=== PATIENT | male | born 1995 | race Caucasian/White ===

== ENCOUNTER 2017-10-04 02:23 | Emergency (ER) | payer BC ==
[2017-10-04] MEDS: DIPHTH,PERTUSS(ACELL),TET TOX 0.5 ML DISP.SYRIN. VAX IM ×2 (02:50)
[2017-10-04] MEDS: LIDOCAINE 2%/EPI 1:100,000 20 ML VIAL. IJ ×2 (03:00)
== END 2017-10-04 03:33 | disposition home or self-care (01) ==
LOC: ER 02:23
DX: S01.112A Laceration without foreign body of left eyelid and periocular area, initial encounter (principal); F12.10 Cannabis abuse, uncomplicated; W22.01XA Walked into wall, initial encounter; Y93.89 Activity, other specified; Y92.89 Other specified places as the place of occurrence of the external cause; Y99.8 Other external cause status
CPT/HCPCS: 12013; 90471; 90715; 99283-25; J3490

== ENCOUNTER 2017-11-16 17:25 | Emergency (ER) | payer BC ==
[2017-11-16] MEDS: IPRATRPIUM/ALBUTEROL 0.5/2.5MG 3 ML NEBU. NEB (18:03)
[2017-11-16] MEDS: predniSONE 20 MG TABLET PO (18:06)
== END 2017-11-16 19:10 | disposition home or self-care (01) ==
LOC: ER 17:25
DX: J20.9 Acute bronchitis, unspecified (principal); J45.909 Unspecified asthma, uncomplicated; F12.10 Cannabis abuse, uncomplicated
CPT/HCPCS: 94640; 99283-25; J7512; J7620

== ENCOUNTER 2018-03-23 15:00 | Emergency (ER) | payer BC ==
[2018-03-23] MEDS: predniSONE 20 MG TABLET PO (15:58)
== END 2018-03-23 16:01 | disposition home or self-care (01) ==
LOC: ER 15:00
DX: T63.481A Toxic effect of venom of other arthropod, accidental (unintentional), initial encounter (principal); L27.0 Generalized skin eruption due to drugs and medicaments taken internally; J45.909 Unspecified asthma, uncomplicated; Y92.89 Other specified places as the place of occurrence of the external cause
CPT/HCPCS: 99283; J7512

== ENCOUNTER 2020-06-13 10:06 | Emergency (ER) | payer BC ==
[~2020-06-13] VITALS: Ht 170.2 cm; Wt 94.3 kg
[~2020-06-13 10:06] MED LIST: ALBU2.5V8 INH; AMOX1TAB61 PO; AZIT250T6 PO; IBUP-1060 PO; PRED20TA PO
[2020-06-13 10:29] VITALS: BP 116/71
[2020-06-13] MEDS ORDERED: HYDR15CR20 TP (11:55)
--- NOTE | 2020-06-13 11:55 | PHYS DOC ---
Past Medical History Past Medical History: No Pertinent History Past Surgical History: No Surgical History Smoking Status: Never Smoker Alcohol Use: None Drug Use: Marijuana General Adult EDM: Chief Complaint: PENIS PROBLEM HPI: HPI: Patient is a 25 year old male who presents to the emergency department with concerns of a rash on his penis that itches since yesterday. Patient denies any penile discharge, swelling, testicular pain, testicular swelling, dysuria, hematuria, pelvic pain, low back pain, or fever. He reports that he had sexual intercourse with a new partner on the evening of 06/09/20. He reports that a brand of nonlatex condom that he had never tried was used at that time. He currently denies any pain. Review of Systems: Review of Systems: Constitutional: Denies fever or chills. [] GI: Denies abdominal pain, nausea, vomiting[] : Denies dysuria; see HPI. [] Musculoskeletal: Denies back pain Integument: See history of present illness Lymphatic: Denies swollen glands. [] Psychiatric: Denies depression or anxiety. [] Complete ROS is negative unless otherwise stated in the HPI. Heart Score: Risk Factors: Risk Factors: DM, Current or recent (<one month) smoker, HTN, HLP, family history of CAD, obesity. Risk Scores: Score 0 - 3: 2.5% MACE over next 6 weeks - Discharge Home Score 4 - 6: 20.3% MACE over next 6 weeks - Admit for Clinical Observation Score 7 - 10: 72.7% MACE over next 6 weeks - Early Invasive Strategies Allergies: Allergies: Allergies Coded Allergies Type Severity Reaction Last Updated Verified No Known Drug Allergies 07/15/17 No Physical Exam: PE: Constitutional: Well developed, well nourished, no acute distress, non-toxic appearance. [] HENT: Normocephalic, atraumatic, bilateral external ears normal, nose normal. [] Eyes: PERRLA, EOMI, conjunctiva normal, no discharge. [] Neck: Normal range of motion, no stridor. [] Cardiovascular:Heart rate regular rhythm Lungs & Thorax: Respirations even and unlabored, no retractions, no respiratory distress Male genitourinary: Glans appears normal, no penile discharge, testicles are nontender; Skin: Warm, dry; patchy fine maculopapular erythemic rash noted to the shaft of penis concerning for contact dermatitis, no discharge, no vesicles Extremities: No cyanosis, ROM intact, no edema. [] Neurologic: Alert and oriented X 3, no focal deficits noted. [] Psychologic: Affect normal, judgement normal, mood normal. [] Current Patient Data: Vital Signs: Vital Signs Date Time Temp Pulse Resp B/P (MAP) Pulse Ox O2 Delivery O2 Flow Rate FiO2 06/13/20 10:29 98.2 76 14 116/71 (86) 97 Room Air 98.2 EKG: EKG: [] Radiology/Procedures: Radiology/Procedures: [] Course & Med Decision Making: Course & Med Decision Making Pertinent Labs and Imaging studies reviewed. (See chart for details) [] Dragon Disclaimer: VeriWave Disclaimer: This electronic medical record was generated, in whole or in part, using a voice recognition dictation system. Departure Departure Impression: Primary Impression: Rash of penis Additional Impression: Contact dermatitis Qualified Codes: L23.9 - Allergic contact dermatitis, unspecified cause Disposition: HOME, SELF-CARE Condition: STABLE Referrals: NO PCP (PCP) Patient Instructions: Contact Dermatitis, [id number] Additional Instructions: Fill the prescription and use it as directed. Recommend that you take Benadryl 25 mg every 6 hours as needed for itching. Follow-up with your primary care doctor or 1 of the doctors below if symptoms persist. He might also want to go to the local health department for STI testing if symptoms persist. Return to the ER if fever develops or symptoms worsen. [facility] [address] [place] [address] [facility] [address] [place] [address] [facility] [address] [facility] [place] [address] [facility] [address] [place] [address] [facility] [address] [place] [address] [facility] [address] [place] [address] [facility] [address] [place] [address] [facility] [address] [place] [address] [facility] [address] [place] [address] [facility] [address] [place] [address] Scripts Hydrocortisone Valerate (HYDROCORTISONE VALERATE) 15 Gm Cream..g. 1 JEANIE TP TID PRN for ITCHING for 7 Days, #30 GM 0 Refills 1% hydrocortisone cream Prov: ZACH PARRA TIRE MAKER 06/13/20 ZACH PARRA TIRE MAKER Jun 13, 2020 11:55
== END 2020-06-13 12:02 | disposition home or self-care (01) ==
LOC: ER 10:06
DX: L23.9 Allergic contact dermatitis, unspecified cause (principal)
CPT/HCPCS: 99282

== ENCOUNTER 2020-10-22 21:17 | Emergency (ER) | payer BC ==
[~2020-10-22] VITALS: Ht 172.7 cm; Wt 95.0 kg
[~2020-10-22 21:17] MED LIST changes: +HYDR15CR20 TP
[2020-10-22 22:13] LABS: BASO # 0.1 x10^3/uL (0.0-0.2); BASO % 1 % (0-3); EOS # 0.4 x10^3/uL (0.0-0.7); EOS % 4 % (0-3); HEMOGLOBIN 14.8 g/dL (13.0-17.5); LYMPH # 3.5 x10^3/uL (1.0-4.8); LYMPH % 38 % (24-48); MEAN CORPUSCULAR HEMOGLOBIN 29 pg (25-35); MEAN CORPUSCULAR HGB CONC 34 g/dL (31-37); MEAN CORPUSCULAR VOLUME 83 fL (79-100); MONO # 0.7 x10^3/uL (0.0-1.1); MONO % 8 % (0-9); NEUT # 4.6 x10^3/uL (1.8-7.7); NEUT % 50 % (31-73); PLATELET COUNT 330 x10^3/uL (140-400); RED BLOOD COUNT 5.18 x10^6/uL (4.30-5.70); RED CELL DISTRIBUTION WIDTH 13.3 % (11.5-14.5); WHITE BLOOD COUNT 9.2 x10^3/uL (4.0-11.0)
--- NOTE | 2020-10-22 22:23 | RAD ---
EXAM: XR CHEST 2V 10/22/2020 10:09 PM CLINICAL INDICATION: Chest pain and shortness of breath for one day COMPARISON: None TECHNIQUE: PA and lateral views of the chest FINDINGS: The heart and mediastinum are normal. Lungs are well-expanded and clear. No consolidation, pleural effusion, or pneumothorax. No acute osseous abnormality. IMPRESSION: Normal chest radiograph. Electronically signed by: Natalia Hayes MD (10/22/2020 10:21 PM) [id number]
[2020-10-22 22:28] LABS: CALCIUM 9.2 mg/dL (8.5-10.1); CREATININE 0.7 mg/dL (0.7-1.3); GFR 139.8; POTASSIUM 3.2 mmol/L (3.5-5.1)
[2020-10-22] MEDS ORDERED: KETOROLAC 30 MG/ML VIAL. IVP ONE (22:30)
[2020-10-22] MEDS ORDERED: IV NORMAL SALINE 1000ML BAG 1,000 ML IV ONE (22:30)
[2020-10-22 22:36] LABS: ALBUMIN 3.9 g/dL (3.4-5.0); TOTAL BILIRUBIN 0.2 mg/dL (0.2-1.0)
[2020-10-22 22:50] LABS: CREATINE KINASE 61 U/L (39-308)
[2020-10-22] MEDS ORDERED: IBUP-1007 PO (23:18)
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
[2020-10-22 23:22] VITALS: BP 153/79
--- NOTE | 2020-10-23 07:08 | EKG ---
[facility] [address] [place] [address] Test Date: 2020-10-22 Test Time: 21:28:02 Pat Name: VANESSA NORRIS Department: Room: Gender: M Assistant Customer Service Manager: : 1995 Requested By: CHAD MICHAUD Order Number: [id number] Reading MD: Measurements Intervals Grant Rate: 80 P: 25 WA: 142 QRS: 34 QRSD: 92 T: 19 QT: 344 QTc: 400 Interpretive Statements SINUS RHYTHM QRS(T) CONTOUR ABNORMALITY CONSIDER INFERIOR MYOCARDIAL DAMAGE POSSIBLY ABNORMAL ECG RI6.01 No previous ECG available for comparison
== END 2020-10-22 23:24 | disposition home or self-care (01) ==
LOC: ER 21:17
DX: R07.89 Other chest pain (principal)
CPT/HCPCS: 36415; 71046; 80053; 82553; 84484; 85025; 93005; 96361; 96374; 99285; J1885; J7030